=== PATIENT | male | born 1970 | race Caucasian/White ===

== ENCOUNTER 2020-11-01 18:23 | Emergency (ER) | payer BC ==
[2020-11-01 18:42] VITALS: BP 160/106; PULSE 65; TEMP 98.3; BMI 25.0
[2020-11-01] MEDS ORDERED: DIPHTH,PERTUSS(ACELL),TET 0.5 ML DISP.SYRIN IM ONE ×2 (19:28→19:58)
== END 2020-11-01 20:20 | disposition home or self-care (01) ==
LOC: FER 18:23
PROC: 3E0233Z Introduction of Anti-inflammatory into Muscle, Percutaneous Approach (ICD-10-PCS; principal; 2020-11-01)
DX: S61.011A Laceration without foreign body of right thumb without damage to nail, initial encounter (principal)
CPT/HCPCS: 90715; 99284-25